=== PATIENT | male | born 1995 | race African-American/Black ===

== ENCOUNTER 2017-07-26 12:00 | Emergency (ER) | payer BC ==
[2017-07-26] MEDS ORDERED: Mag-Al 1200 mg/1200 mg/30 ML UDCUP ONE (12:29)
[2017-07-26] MEDS ORDERED: Lidocaine Viscous Sol 2% 15 ml UD Cup ONE (12:29)
--- NOTE | 2017-07-26 12:46 | RAD ---
2 VIEW CHEST: Date: 07/26/17 HISTORY: Chest pain. COMPARISON: 03/19/12. FINDINGS: The lungs are clear. Heart and mediastinum appear unremarkable. IMPRESSION: No evidence of acute process. POS: [facility]
[2017-07-26 13:01] LABS: #Basophils 0.1 thou/uL (0.0-0.2); #Eosinphils 0.1 thou/uL (0.0-0.7); #Lymphocytes 2.4 thou/uL (1.20-3.40); #Monocytes 0.5 thou/uL (0.11-0.59); #Neutrophils 6.3 thou/uL (1.40-6.50); %Basophils 0.6 % (0.0-1.0); %Eosinophils 0.8 % (0.0-10.0); %Lymphocytes 25.3 % (21.0-51.0); %Monocytes 5.5 % (0.0-10.0); Hematocrit 50.5 % (42.0-52.0); Mean Platelet Volume 6.2 fL (7.4-10.4); Red Blood Cell (RBC) Count 6.05 mill/uL (4.70-6.10); White Blood Cell (WBC) Count 9.3 thou/uL (4.8-10.8)
[2017-07-26 13:28] LABS: ALT (SGPT) 29 U/L (8-55); AST (SGOT) 18 U/L (5-34); Alkaline Phosphatase 92 U/L (40-150); Anion Gap 12 mmol/L (10-20); BUN (Urea Nitrogen) 10 mg/dL (8.9-20.6); Bilirubin, Total 0.4 mg/dL (0.2-1.2); Calc. Creatinine Clearance 0 mL/min (70-130); Calcium 9.1 mg/dL (7.8-10.44); Carbon Dioxide 22 mmol/L (22-29); Chloride 106 mmol/L (98-107); Estimated GFR-MDRD Greater than 90; Globulin 3.4 g/dL (2.4-3.5); Lipase 19 U/L (8-78)
[2017-07-26 13:30] LABS: Troponin I 0.013 ng/mL (< 0.028)
--- NOTE | 2017-07-26 15:49 | CT ---
EXAM: CHEST CT WITHOUT CONTRAST 07/26/17 HISTORY: Abnormal chest radiograph. Chest pain. COMPARISON: 03/19/12. TECHNIQUE: Noncontrast chest CT is performed in the axial plane. Coronal reformatted images are submitted for i nterpretation. FINDINGS: Limited evaluation of the mediastinum due to the absence of IV contrast. No mass, lymphadenopathy, h ematoma. Heart size is within normal limits. No significant pericardial fluid. Visualized upper megan d organs are also grossly unremarkable. Trachea and central bronchi are patent. No consolidation or mass. No pleural effusion. No pneumothor ax. No osteoblastic or osteolytic lesions. IMPRESSION: No acute cardiopulmonary process. POS: [facility]
== END 2017-07-26 15:54 | disposition home or self-care (01) ==
LOC: ERS 12:00
DX: K20.9 Esophagitis, unspecified (principal); E78.5 Hyperlipidemia, unspecified; I10 Essential (primary) hypertension
CPT/HCPCS: 36415; 71020; 71250; 80053; 83690; 84484; 85025; 85379; 93005

== ENCOUNTER 2019-01-07 10:54 | Inpatient (IN) | payer BC, SELFPAY ==
[2019-01-07] MEDS ORDERED: hydrALAZINE 20 MG/ML VIAL ONE (11:56)
[2019-01-07 12:09] LABS: #Basophils 0.1 thou/uL (0.0-0.2); #Lymphocytes 2.4 thou/uL (1.20-3.40); #Monocytes 0.5 thou/uL (0.11-0.59); #Neutrophils 4.5 thou/uL (1.40-6.50); %Basophils 1.1 % (0.0-1.0); %Eosinophils 0.7 % (0.0-10.0); %Lymphocytes 32.5 % (21.0-51.0); %Monocytes 6.1 % (0.0-10.0); %Neutrophils 59.7 % (42.0-75.0); Hemoglobin 15.8 g/dL (14.0-18.0); Mean Corpuscular HGB CONC 32.2 g/dL (32.0-36.0); Mean Corpuscular Hemoglobin 26.4 pg (27.0-31.0); Mean Corpuscular Volume 81.8 fL (78.0-98.0); Mean Platelet Volume 6.6 fL (7.4-10.4); Platelet Count 319 thou/uL (130-400); RBC Distribution Width 13.6 % (11.5-14.5); Red Blood Cell (RBC) Count 5.98 mill/uL (4.70-6.10); White Blood Cell (WBC) Count 7.5 thou/uL (4.8-10.8)
[2019-01-07 12:47] LABS: ALT (SGPT) 41 U/L (8-55); AST (SGOT) 20 U/L (5-34); Alkaline Phosphatase 83 U/L (40-150); Anion Gap 14 mmol/L (10-20); BUN (Urea Nitrogen) 11 mg/dL (8.9-20.6); Bilirubin, Total 0.5 mg/dL (0.2-1.2); Calc. Creatinine Clearance 0 mL/min (70-130); Calcium 9.6 mg/dL (7.8-10.44); Carbon Dioxide 25 mmol/L (22-29); Chloride 104 mmol/L (98-107); Estimated GFR-MDRD Greater than 90; Globulin 3.4 g/dL (2.4-3.5); Glucose 87 mg/dL (70-105); Potassium 4.1 mmol/L (3.5-5.1); Protein, Total 7.4 g/dL (6.0-8.3); Sodium 139 mmol/L (136-145)
--- NOTE | 2019-01-07 12:48 | CT ---
Exam: CT brain without contrast HISTORY: Headache COMPARISON: None TECHNIQUE: Multiple contiguous axial images were obtained and a CT of the brain without contrast. FINDINGS: The brain is normal in morphology and attenuation without focal lesions or confluent areas of infarction. There is no evidence of hydrocephalus, intracranial hemorrhage, or extra-axial fluid collection. The calvarium and overlying soft tissues are unremarkable. The visualized paranasal sinuses and masto id air cells are well aerated. IMPRESSION: No evidence of acute intracranial abnormality
[2019-01-07] MEDS ORDERED: Labetalol HCl 100 MG/20 ML VIAL ONE (14:07)
[2019-01-07] MEDS ORDERED: niCARdipine 20MG In NaCl 20 MG/200 ML BAG ONE ×2 (14:39→16:51)
--- NOTE | 2019-01-07 15:35 | HP ---
PRIMARY CARE PHYSICIAN: [facility] Call Admission. REASON FOR ADMISSION: Hypertensive urgency. HISTORY OF PRESENT ILLNESS: A 23-year-old male, who presented to emergency room with throbbing headache, which was started yesterday. He was feeling nauseated, but he denies any vomiting. He denies any focal motor or sensory symptoms. He denies any tingling numbness. He denies any chest pain, palpitation, shortness of breath. When he arrived to emergency room, his blood pressure was 244/157. He was given a dose of hydralazine and labetalol. Even after that, the patient was having very high blood pressure and that is why, Cardene drip was started for better blood pressure control and subsequently, we decided to keep this patient in ICU for monitoring blood pressure and titrating Cardene drip. This patient has underlying morbid obesity and he is experiencing daytime sleepiness. He also experiences snoring during nighttime, but he has never been diagnosed with sleep apnea. The patient also reports that he gained significant weight over last few months. He was told that he has hypertension diagnosis, but he was not taking any medication for last several months. REVIEW OF SYSTEMS: CONSTITUTIONAL: Negative for weight loss or gain, ability to conduct usual activities. SKIN: Negative for rash, itching. EYES: Negative for double vision, pain. ENT/MOUTH: Negative for nose bleeding, neck stiffness, pain, tenderness. CARDIOVASCULAR: Negative for palpitations, dyspnea on exertion, orthopnea. RESPIRATORY: Negative for shortness of breath, wheezing, cough, hemoptysis, fever or night sweats. GASTROINTESTINAL: Negative for poor appetite, abdominal pain, heartburn, nausea, vomiting, constipation, or diarrhea. GENITOURINARY: Negative for urgency, frequency, dysuria, nocturia. MUSCULOSKELETAL: Negative for pain, swelling. NEUROLOGIC/PSYCHIATRIC: Negative for anxiety, depression. ALLERGY/IMMUNOLOGIC: Negative for skin rash, bleeding tendency. Please see my HPI for pertinent positives and negatives. All other review of systems reviewed and negative except as mentioned in HPI. PAST MEDICAL HISTORY: Hypertension, noncompliance with the treatment, morbid obesity. PAST SURGICAL HISTORY: Reviewed and negative. PAST PSYCHIATRIC HISTORY: Reviewed and negative. SOCIAL HISTORY: The patient drinks alcohol every other week. He denies any smoking. He denies any other illicit drug abuse. He works in [employer]. FAMILY HISTORY: Positive for hypertension to grandmother, but no strong family history of premature coronary artery disease, stroke, or cancer. ALLERGIES: NO KNOWN DRUG ALLERGIES. CURRENT HOME MEDICATIONS: The patient is not taking any prescribed or non-prescribed medication. EMERGENCY ROOM COURSE: The patient was given hydralazine and labetalol and subsequently, Cardene drip was started. PHYSICAL EXAMINATION: VITAL SIGNS: Blood pressure maximum 244/157, pulse 95, respiratory rate 18, temperature 97.6, saturation 98% on room air. Weight 163 kg. GENERAL: The patient is currently alert, awake, in no obvious acute distress. HEENT: Head; normocephalic, atraumatic. Eyes; pupils round, reactive to light. Extraocular muscle intact. ENT; oropharynx within normal limits. Crowded oropharynx. Large circumference of neck. No pharyngeal erythema. No exudate. NECK: Circumference of neck is larger. No JVD. No thyromegaly. No carotid bruit. LUNGS: Clear to auscultation without any rhonchi or rales. CARDIAC: S1, S2 regular. No murmur. No gallop. No rub. ABDOMEN: Morbid obesity present. Obesity limiting examination. No organomegaly. No mass. No suprapubic tenderness. BACK EXAMINATION: Unremarkable. No CVA tenderness. EXTREMITIES: Upper extremity, passive movement of all joints are normal. Lower extremity, no edema. Good distal pulsation. SKIN: No skin rash. HEMATOLOGICAL SYSTEM: No lymphadenopathy. NEUROLOGIC: Nonfocal examination. The patient is alert oriented x3. Cranial nerves nerve 2 through 12 intact. Motor 5/5 in all four limbs. Sensation bilateral symmetrical. Reflexes symmetrical. Plantar bilateral flexor. SIGNIFICANT LABORATORY DATA: EKG showing nonspecific ST-T changes, LVH with repolarization changes. CBC; WBC 7.5, hemoglobin 15.8, platelet 319. BMP; sodium 139, potassium 4.1, chloride 104, carbon dioxide 25, BUN 11, creatinine 1.17, glucose 87, calcium 9.6. LFT; AST 20, ALT 41, alkaline phosphatase 83, and albumin 4.0. ASSESSMENT AND PLAN: 1. Hypertensive urgency/emergency. The patient has not responded to conservative parenteral medication in the emergency room and he is requiring Cardene drip for control of blood pressure. At this point because the patient is on Cardene drip, we will keep him in ICU for titrating Cardene drip. We will also start oral medication, Procardia XL and hydrochlorothiazide. We will try to wean off from Cardene drip. We will check secondary hypertension workup with aldosterone, plasma renin activity, echocardiography, TSH, lipid profile, hemoglobin A1c. 2. Morbid obesity with obstructive sleep apnea, suspected. The patient will need outpatient sleep study. Weight loss education given. Healthy lifestyle measure discussed with the patient. 3. Deep venous thrombosis prophylaxis. Lovenox 40 mg subcu daily prophylaxis. 4. Gastrointestinal prophylaxis. Pepcid 20 mg p.o. b.i.d. CODE STATUS: The patient is full code. The patient does not have any surrogate decision maker. DISPOSITION PLAN: Based on clinical course, we are expecting the patient's stay in hospital more than 2 midnights. Plan of care discussed with the patient in detail. Job ID: [id number]
[2019-01-07] MEDS ORDERED: Hydrocerin (Eucerin) Cream 120 gm Jar TOP PRN (17:56)
[2019-01-07] MEDS ORDERED: cloNIDine 0.1 MG TAB PO PRN (17:56)
[2019-01-07] MEDS ORDERED: Nitroglycerin 0.4 MG TAB (25 Tab Bottle) SL PRN (17:56)
[2019-01-07] MEDS ORDERED: Ondansetron ODT 4 MG TAB PO PRN (17:56)
[2019-01-07] MEDS ORDERED: Ondansetron PF 4 MG/2 ML Vial IVP PRN (17:56)
[2019-01-07] MEDS ORDERED: Loratadine 10 MG TAB PO PRN (17:56)
[2019-01-07] MEDS ORDERED: Labetalol HCl 100 MG/20 ML VIAL SLOW IVP PRN (17:56)
[2019-01-07] MEDS ORDERED: HYDROcodone/Acetaminophen 5/325 mg Tablet PO PRN (17:56)
[2019-01-07] MEDS ORDERED: Acetaminophen 325 MG TAB PO PRN (17:56)
[2019-01-07] MEDS ORDERED: hydrALAZINE 20 MG/ML VIAL SLOW IVP PRN (17:56)
[2019-01-07] MEDS ORDERED: Cepastat Lozenges 1 LOZ PO PRN (17:56)
[2019-01-07] MEDS ORDERED: Diabetic Tussin 200 MG/10 ML UDCUP PO PRN (17:56)
[2019-01-07] MEDS ORDERED: niCARdipine HCl 25 MG in Sodium Chloride 0.9% 250 ML 240 ML IVPB SCH (17:56)
[2019-01-07] MEDS ORDERED: Sodium Chloride 0.65% Nasal 44 ML BOT EA NARE PRN (17:56)
[2019-01-07] MEDS ORDERED: Senokot S 8.6-50 MG TAB PO PRN (17:56)
[2019-01-07] MEDS ORDERED: Artificial Tears 18 DROP/0.9 ML EA EYE PRN (17:56)
[2019-01-07] MEDS ORDERED: Bisacodyl 10 MG SUPP PR PRN (17:56)
[2019-01-07] MEDS ORDERED: Loperamide HCl 2 MG CAP PO PRN (17:56)
[2019-01-07] MEDS ORDERED: Zolpidem Tartrate 5 MG TAB PO PRN (17:56)
[2019-01-07 17:57] VITALS: BMI 57.2
[2019-01-07] MEDS: Famotidine 20 MG TAB PO SCH (20:53)
[2019-01-07 21:58] LABS: Amphetamine Not Detected (NotDetected); Barbiturates Screen Not Detected (NotDetected); Benzodiazepine Screen Not Detected (NotDetected); Cocaine Metabolite Screen Not Detected (NotDetected); Medtox Control Line Valid? VALID (VALID); Medtox Reader # READER 1; Methadone Not Detected (NotDetected); Methamphetamine Not Detected (NotDetected); Opiate Screen Not Detected (NotDetected); Oxycodone Screen Not Detected (NotDetected); Phencyclidine (PCP) Not Detected (NotDetected); THC/Cannabinoid Screen Not Detected (NotDetected); Tricyclic Screen Not Detected (NotDetected)
[2019-01-08 06:20] LABS: #Basophils 0.1 thou/uL (0.0-0.2); #Lymphocytes 2.5 thou/uL (1.20-3.40); #Monocytes 0.8 thou/uL (0.11-0.59); #Neutrophils 5.7 thou/uL (1.40-6.50); %Basophils 0.7 % (0.0-1.0); %Eosinophils 0.5 % (0.0-10.0); %Lymphocytes 27.8 % (21.0-51.0); %Monocytes 8.3 % (0.0-10.0); %Neutrophils 62.8 % (42.0-75.0); Hemoglobin 14.4 g/dL (14.0-18.0); Mean Corpuscular Hemoglobin 26.7 pg (27.0-31.0); Mean Corpuscular Volume 83.4 fL (78.0-98.0); Mean Platelet Volume 6.8 fL (7.4-10.4); Platelet Count 308 thou/uL (130-400); RBC Distribution Width 13.8 % (11.5-14.5); Red Blood Cell (RBC) Count 5.39 mill/uL (4.70-6.10)
[2019-01-08 06:42] LABS: Anion Gap 12 mmol/L (10-20); BUN (Urea Nitrogen) 17 mg/dL (8.9-20.6); Calc. Creatinine Clearance 189 mL/min (70-130); Calcium 9.1 mg/dL (7.8-10.44); Carbon Dioxide 24 mmol/L (22-29); Cardiac Risk 6.1 (Less than 4.5); Chloride 105 mmol/L (98-107); Cholesterol 207 mg/dl (< 200 Desired); Estimated GFR-MDRD 77; Glucose 93 mg/dL (70-105); HDL Cholesterol 34 mg/dL (>60 Neg Risk); LDL Cholesterol, Calculated 155 mg/dL; Potassium 3.8 mmol/L (3.5-5.1); Sodium 137 mmol/L (136-145); Triglycerides 88 mg/dL (Less than 150)
[2019-01-08] MEDS: NIFEdipine XL 60 MG TAB PO SCH (07:29)
[2019-01-08] MEDS: Hydrochlorothiazide 25 MG TAB PO SCH (07:29)
[2019-01-08] MEDS: Famotidine 20 MG TAB PO SCH ×2 (07:30→20:09)
[2019-01-08] MEDS: Enoxaparin Sodium 40 MG/0.4 ML SYRINGE SC SCH (10:42)
--- NOTE | 2019-01-08 12:29 | PDOC.PN ---
- Subjective Encounter Start Date: 01/08/19 Encounter Start Time: 07:00 Patient seen and examined. No new complaints. No overnight events - Objective Resuscitation Status - Order Detail: 01/07/19 15:05 Resuscitation Status Routine Resuscitation Status: FULL: Full Resuscitation MAR Reviewed: Yes Vital Signs & Weight: Vital Signs (12 hours) Temp Pulse Resp BP BP Pulse Ox 01/08/19 11:10 98.4 F 90 18 135/63 97 01/08/19 08:00 97.8 F 100 01/08/19 07:40 100 01/08/19 07:29 103 H 185/113 H 01/08/19 04:00 98.0 F Weight Weight 354 lb 15.108 oz Most Recent Monitor Data Heart Rate from ECG 85 NIBP 137/91 NIBP BP-Mean 106 Respiration from ECG 20 SpO2 100 I&O: 01/07/19 01/08/19 01/09/19 06:59 06:59 06:59 Intake Total 724 540 Output Total 400 450 Balance 324 90 Result Diagrams: 01/08/19 05:55 01/08/19 05:55 EKG Reviewed by me: Yes Phys Exam - Physical Examination Constitutional: NAD HEENT: PERRLA, moist MMs, sclera anicteric Neck: no JVD, supple Respiratory: no wheezing, no rales, no rhonchi Cardiovascular: RRR, no significant murmur, no rub Gastrointestinal: soft, non-tender, no distention, positive bowel sounds Musculoskeletal: no edema, pulses present Neurological: non-focal, normal sensation, moves all 4 limbs Psychiatric: normal affect, A&O x 3 Skin: no rash, normal turgor Dx/Plan (1) Dyslipidemia Code(s): E78.5 - HYPERLIPIDEMIA, UNSPECIFIED Status: Acute (2) Hypertensive urgency, malignant Code(s): I16.0 - HYPERTENSIVE URGENCY Status: Acute (3) Morbid obesity with BMI of 50.0-59.9, adult Code(s): E66.01 - MORBID (SEVERE) OBESITY DUE TO EXCESS CALORIES; Z68.43 - BODY MASS INDEX (BMI) 50-59.9, ADULT Status: Chronic (4) KASSANDRA (obstructive sleep apnea) Code(s): G47.33 - OBSTRUCTIVE SLEEP APNEA (ADULT) (PEDIATRIC) Status: Suspected - Plan cont current plan of care * medication reviewed as below * symptomatic treatment. * transfer to medical * add coreg 25 mg po bid * jaenl delgado Review of Systems - Review of Systems ENT: negative: Ear Pain, Ear Discharge, Nose Pain, Nose Discharge, Nose Congestion, Mouth Pain, Mouth Swelling, Throat Pain, Throat Swelling, Other Respiratory: negative: Cough, Dry, Shortness of Breath, Hemoptysis, SOB with Excertion, Pleuritic Pain, Sputum, Wheezing Cardiovascular: negative: chest pain, palpitations, orthopnea, paroxysmal nocturnal dyspnea, edema, light headedness, other Gastrointestinal: negative: Nausea, Vomiting, Abdominal Pain, Diarrhea, Constipation, Melena, Hematochezia, Other Genitourinary: negative: Dysuria, Frequency, Incontinence, Hematuria, Retention , Other Musculoskeletal: negative: Neck Pain, Shoulder Pain, Arm Pain, Back Pain, Hand Pain, Leg Pain, Foot Pain, Other - Medications/Allergies Allergies/Adverse Reactions: Allergies Allergy/AdvReac Type Severity Reaction Status Date / Time No Known Allergies Allergy Verified 07/20/13 10:09 Medications: Current Medications Acetaminophen (Tylenol) 650 mg PO Q4H PRN PRN Reason: Headache/Fever/Mild Pain (1-3) Hydrocodone Bitart/Acetaminophen ([place] 5/325) 1 tab PO Q4H PRN PRN Reason: Moderate Pain (4-6) Artificial Tears (Tears Naturale) 2 drop EA EYE PRN PRN PRN Reason: Dry Eyes Atorvastatin Calcium (Lipitor) 20 mg PO HS [facility] Bisacodyl (Dulcolax) 10 mg [place] DAILYPRN PRN PRN Reason: Constipation Carvedilol (Coreg) 25 mg PO BID-[facility] Clonidine (Catapres) 0.1 mg PO Q4H PRN PRN Reason: SBP Greater Than 170 Last Admin: 01/07/19 18:20 Dose: 0.1 mg Emollient Cream (Hydrocerin Cream) 0 gm TOP BIDPRN PRN PRN Reason: Dry Skin Enoxaparin Sodium (Lovenox) 40 mg SC 0900 [facility] Last Admin: 01/08/19 10:42 Dose: 40 mg Famotidine (Pepcid) 20 mg PO BID [facility] Last Admin: 01/08/19 07:30 Dose: 20 mg Guaifenesin (Robitussin Sf) 200 mg PO Q4H PRN PRN Reason: Cough Hydralazine HCl (Apresoline) 10 mg SLOW IVP Q4H PRN PRN Reason: SBP > 180 and HR < 70 Last Admin: 01/07/19 18:20 Dose: 10 mg Hydrochlorothiazide (Hydrochlorothiazide) 25 mg PO DAILY [facility] Last Admin: 01/08/19 07:29 Dose: 25 mg Labetalol HCl (Normodyne) 20 mg SLOW IVP Q4H PRN PRN Reason: SBP > 180 and HR >/= 70 Loperamide HCl (Imodium) 2 mg PO PRN PRN PRN Reason: Diarrhea/Loose Stools Loratadine (Claritin) 10 mg PO DAILYPRN PRN PRN Reason: Sinus Symptoms Nifedipine (Procardia Xl) 60 mg PO DAILY [facility] Last Admin: 01/08/19 07:29 Dose: 60 mg Nitroglycerin (Nitrostat) 0.4 mg SL Q5MIN PRN PRN Reason: Chest Pain Ondansetron HCl (Zofran Odt) 4 mg PO Q6H PRN PRN Reason: Nausea/Vomiting Ondansetron HCl (Zofran) 4 mg IVP Q6H PRN PRN Reason: Nausea/Vomiting Last Admin: 01/07/19 19:16 Dose: 4 mg Senna/Docusate Sodium (Senokot S) 2 tab PO BID PRN PRN Reason: Constipation Sodium Chloride ([place] 0.65%) 0 ml EA NARE QIDPRN PRN PRN Reason: Nasal Congestion Throat Lozenges (Cepastat Lozenges) 1 jaquan PO Q2H PRN PRN Reason: Sore Throat Zolpidem Tartrate (Ambien) 5 mg PO HSPRN PRN PRN Reason: Insomnia
--- NOTE | 2019-01-08 12:54 | CON ---
DATE OF CONSULTATION: HISTORY OF PRESENT ILLNESS: Miguel Lowe is a 23-year-old morbidly obese gentleman, 163 kilos, came to the ER with severe headache, uncontrolled blood pressure measured at 210/139, sats 98%, respiratory rate 17. He said he has gained 100 pounds in the last several years. Works in the oil field. No tobacco abuse. Minimal alcohol intake. It is unclear why he did not take his medicine. Denies difficulty breathing, previous history of pneumonia, TB, or asthma. PAST MEDICAL HISTORY: Mainly hypertension, hyperlipidemia. PREVIOUS SURGERIES: None. MEDICATIONS: Chronic medication are unknown. SOCIAL HISTORY: As noted. FAMILY HISTORY: Unremarkable. REVIEW OF SYSTEMS: Pertinent for sleep apnea. PHYSICAL EXAMINATION: VITAL SIGNS: This morning, blood pressure is 135/53, pulse 92, sats 100%, respiratory rate 18. GENERAL: Awake, alert, responsive. CHEST: Decreased breath sounds. No wheezing. CARDIAC: Normal S1, S2. No gallops. ABDOMEN: No masses. IMPRESSION: 1. Uncontrolled hypertension secondary to poor compliance of medication. 2. Sleep apnea. 3. Morbid obesity. PLAN: His blood pressure is improved on present medication. He transferred out of the ICU. Pulmonary Critical Care will follow at a distance. Please call if he needs an outpatient sleep study. Job ID: [id number]
[2019-01-08] MEDS: Carvedilol 25 MG TAB PO SCH (17:10)
[2019-01-08] MEDS ORDERED: Atorvastatin Calcium 20 MG TAB PO SCH (21:00)
[2019-01-09 08:23] VITALS: BP 138/85; TEMP 97.5
[2019-01-09] MEDS: Famotidine 20 MG TAB PO SCH (08:42)
[2019-01-09] MEDS: NIFEdipine XL 60 MG TAB PO SCH (08:42)
[2019-01-09] MEDS: Hydrochlorothiazide 25 MG TAB PO SCH (08:42)
[2019-01-09] MEDS: Carvedilol 25 MG TAB PO SCH (08:42)
[2019-01-09] MEDS: Enoxaparin Sodium 40 MG/0.4 ML SYRINGE SC SCH (08:43)
--- NOTE | 2019-01-09 09:56 | DIS ---
DATE OF ADMISSION: 01/07/2019 DATE OF DISCHARGE: 01/09/2019 PRIMARY CARE PHYSICIAN: [facility] Call Admission. DISCHARGE DISPOSITION: Home. PRIMARY DISCHARGE DIAGNOSES: 1. Hypertensive urgency. 2. Left ventricular hypertrophy secondary to hypertension, heart disease, dyslipidemia. SECONDARY DISCHARGE DIAGNOSES: 1. Morbid obesity with body mass index 55. 2. Obstructive sleep apnea, suspected. PRIMARY PROCEDURE/OPERATION: None. RADIOLOGICAL INVESTIGATION: CT brain, normal. Echocardiography showed normal EF. SIGNIFICANT LABORATORY DATA: Hemoglobin 14.4, creatinine 1.36, LDL 155, TSH 1.47. Hemoglobin A1c 5.0. Urine drug screen negative. DISCHARGE MEDICATION: 1. Lipitor 20 mg p.o. at bedtime. 2. Coreg 25 mg p.o. b.i.d. 3. Hydrochlorothiazide 25 mg p.o. daily. 4. Procardia XL 60 mg p.o. daily. CONTRAINDICATION: None. CODE STATUS: Full code. INPATIENT MUNICIPAL FIREFIGHTER: Pulmonary group also saw this patient because the patient was admitted in ICU. TEST RESULTS PENDING ON DISCHARGE: None. ALLERGIES: NO KNOWN DRUG ALLERGIES. DISCHARGE PLAN: Posthospital, the patient will follow up with primary care physician in 1 or 2 weeks. HOSPITAL COURSE: A 23-year-old male, who has morbid obesity as well as he has history suggestive of obstructive sleep apnea, who was complaining of headache and that is why he came to emergency room. His blood pressure was very high. It was very difficult to control even with parenteral hydralazine and labetalol Emergency Room, and that is why Cardene drip was started and he was admitted in ICU for titration of Cardene drip. We also started oral antihypertensives medication. During this admission, we started Coreg, hydrochlorothiazide, and Procardia XL, and with that, the patient's blood pressure was well controlled and Cardene drip was discontinued. The patient was transferred to medical floor. The patient is completely asymptomatic. His blood pressure continued to be better. We sent all new medication prescription to his pharmacy. I have seen and examined the patient at bedside today. I have given counseling to reduce weight and doing exercise as well as healthy lifestyle measure discussed with the patient. Dietary education given. He will follow up with primary care physician and he will get outpatient sleep study. Overall, the patient is medically stable for discharge today. Job ID: [id number]
--- NOTE | 2019-01-09 10:07 | PDOC.PN ---
- Subjective Encounter Start Date: 01/09/19 Encounter Start Time: 07:00 Patient seen and examined. No new complaints. No overnight events - Objective Resuscitation Status - Order Detail: 01/07/19 15:05 Resuscitation Status Routine Resuscitation Status: FULL: Full Resuscitation MAR Reviewed: Yes Vital Signs & Weight: Vital Signs (12 hours) Temp Pulse Resp BP BP Pulse Ox 01/09/19 08:42 83 01/09/19 08:15 97.5 F L 83 18 138/85 95 01/09/19 03:43 97.9 F 77 12 125/68 96 01/08/19 23:24 98.0 F 88 16 120/63 95 Weight Weight 354 lb 15.108 oz Most Recent Monitor Data Heart Rate from ECG 85 NIBP 137/91 NIBP BP-Mean 106 Respiration from ECG 20 SpO2 100 I&O: 01/08/19 01/09/19 01/10/19 06:59 06:59 06:59 Intake Total 724 540 Output Total 400 450 Balance 324 90 Result Diagrams: 01/08/19 05:55 01/08/19 05:55 Phys Exam - Physical Examination Constitutional: NAD HEENT: PERRLA, moist MMs, sclera anicteric Neck: no JVD, supple Respiratory: no wheezing, no rales, no rhonchi Cardiovascular: RRR, no significant murmur, no rub Gastrointestinal: soft, non-tender, no distention Musculoskeletal: no edema, pulses present Neurological: non-focal, normal sensation Lymphatic: no nodes Psychiatric: normal affect, A&O x 3 Skin: no rash, normal turgor Dx/Plan (1) Dyslipidemia Code(s): E78.5 - HYPERLIPIDEMIA, UNSPECIFIED Status: Acute (2) Hypertensive urgency, malignant Code(s): I16.0 - HYPERTENSIVE URGENCY Status: Acute (3) Morbid obesity with BMI of 50.0-59.9, adult Code(s): E66.01 - MORBID (SEVERE) OBESITY DUE TO EXCESS CALORIES; Z68.43 - BODY MASS INDEX (BMI) 50-59.9, ADULT Status: Chronic (4) KASSANDRA (obstructive sleep apnea) Code(s): G47.33 - OBSTRUCTIVE SLEEP APNEA (ADULT) (PEDIATRIC) Status: Suspected - Plan cont current plan of care * medication reviewed as below * symptomatic treatment * see discharge rosales. Review of Systems - Review of Systems ENT: negative: Ear Pain, Ear Discharge, Nose Pain, Nose Discharge, Nose Congestion, Mouth Pain, Mouth Swelling, Throat Pain, Throat Swelling, Other Respiratory: negative: Cough, Dry, Shortness of Breath, Hemoptysis, SOB with Excertion, Pleuritic Pain, Sputum, Wheezing Cardiovascular: negative: chest pain, palpitations, orthopnea, paroxysmal nocturnal dyspnea, edema, light headedness, other Gastrointestinal: negative: Nausea, Vomiting, Abdominal Pain, Diarrhea, Constipation, Melena, Hematochezia, Other Genitourinary: negative: Dysuria, Frequency, Incontinence, Hematuria, Retention , Other Musculoskeletal: negative: Neck Pain, Shoulder Pain, Arm Pain, Back Pain, Hand Pain, Leg Pain, Foot Pain, Other - Medications/Allergies Allergies/Adverse Reactions: Allergies Allergy/AdvReac Type Severity Reaction Status Date / Time No Known Allergies Allergy Verified 07/20/13 10:09 Medications: Current Medications Acetaminophen (Tylenol) 650 mg PO Q4H PRN PRN Reason: Headache/Fever/Mild Pain (1-3) Hydrocodone Bitart/Acetaminophen ([place] 5/325) 1 tab PO Q4H PRN PRN Reason: Moderate Pain (4-6) Artificial Tears (Tears Naturale) 2 drop EA EYE PRN PRN PRN Reason: Dry Eyes Atorvastatin Calcium (Lipitor) 20 mg PO [facility] Last Admin: 01/08/19 20:09 Dose: 20 mg Bisacodyl (Dulcolax) 10 mg [place] DAILYPRN PRN PRN Reason: Constipation Carvedilol (Coreg) 25 mg PO BID-[facility] Last Admin: 01/09/19 08:42 Dose: 25 mg Clonidine (Catapres) 0.1 mg PO Q4H PRN PRN Reason: SBP Greater Than 170 Last Admin: 01/07/19 18:20 Dose: 0.1 mg Emollient Cream (Hydrocerin Cream) 0 gm TOP BIDPRN PRN PRN Reason: Dry Skin Enoxaparin Sodium (Lovenox) 40 mg SC 0900 [facility] Last Admin: 01/09/19 08:43 Dose: 40 mg Famotidine (Pepcid) 20 mg PO BID [facility] Last Admin: 01/09/19 08:42 Dose: 20 mg Guaifenesin (Robitussin Sf) 200 mg PO Q4H PRN PRN Reason: Cough Hydralazine HCl (Apresoline) 10 mg SLOW IVP Q4H PRN PRN Reason: SBP > 180 and HR < 70 Last Admin: 01/07/19 18:20 Dose: 10 mg Hydrochlorothiazide (Hydrochlorothiazide) 25 mg PO DAILY [facility] Last Admin: 01/09/19 08:42 Dose: 25 mg Labetalol HCl (Normodyne) 20 mg SLOW IVP Q4H PRN PRN Reason: SBP > 180 and HR >/= 70 Loperamide HCl (Imodium) 2 mg PO PRN PRN PRN Reason: Diarrhea/Loose Stools Loratadine (Claritin) 10 mg PO DAILYPRN PRN PRN Reason: Sinus Symptoms Nifedipine (Procardia Xl) 60 mg PO DAILY [facility] Last Admin: 01/09/19 08:42 Dose: 60 mg Nitroglycerin (Nitrostat) 0.4 mg SL Q5MIN PRN PRN Reason: Chest Pain Ondansetron HCl (Zofran Odt) 4 mg PO Q6H PRN PRN Reason: Nausea/Vomiting Ondansetron HCl (Zofran) 4 mg IVP Q6H PRN PRN Reason: Nausea/Vomiting Last Admin: 01/07/19 19:16 Dose: 4 mg Senna/Docusate Sodium (Senokot S) 2 tab PO BID PRN PRN Reason: Constipation Sodium Chloride ([place] Nasal [place] 0.65%) 0 ml EA NARE QIDPRN PRN PRN Reason: Nasal Congestion Throat Lozenges (Cepastat Lozenges) 1 jaquan PO Q2H PRN PRN Reason: Sore Throat Zolpidem Tartrate (Ambien) 5 mg PO HSPRN PRN PRN Reason: Insomnia
== END 2019-01-09 14:27 | disposition home or self-care (01) | DRG 305 ==
LOC: ERS 10:54 → CCU 17:40 → ONC 01-08 11:33
PROVIDERS: ADMIT Internal Medicine; ATTEND Internal Medicine
DX: I16.0 Hypertensive urgency (principal); Z68.43 Body mass index [BMI] 50.0-59.9, adult; E66.01 Morbid (severe) obesity due to excess calories; I11.9 Hypertensive heart disease without heart failure; G47.33 Obstructive sleep apnea (adult) (pediatric); E78.5 Hyperlipidemia, unspecified; Z91.19 Patient's noncompliance with other medical treatment and regimen; Z82.49 Family history of ischemic heart disease and other diseases of the circulatory system
CPT/HCPCS: 36415; 70450; 80048; 80053; 80061; 80306; 82088; 83036; 84244; 84443; 84484; 85025; 93005; 93306; 96365; 96366; 96375; J0360; J1650; J2405; J7050

== ENCOUNTER 2021-06-13 14:29 | Inpatient (IN) | payer OTHER, BC ==
[2021-06-13] MEDS ORDERED: Boostrix 0.5 ML (Tdap) VIAL ONE (14:39)
[2021-06-13 15:06] LABS: #Basophils 0.1 thou/uL (0.0-0.2); #Eosinphils 0.1 thou/uL (0.0-0.7); #Monocytes 0.7 thou/uL (0.11-0.59); #Neutrophils 7.9 thou/uL (1.40-6.50); %Basophils 0.9 % (0.0-1.0); %Eosinophils 0.6 % (0.0-10.0); %Lymphocytes 36.2 % (21.0-51.0); %Monocytes 5.1 % (0.0-10.0); %Neutrophils 57.2 % (42.0-75.0); Hemoglobin 14.6 g/dL (14.0-18.0); Mean Corpuscular HGB CONC 32.3 g/dL (32.0-36.0); Mean Corpuscular Volume 83.6 fL (78.0-98.0); Mean Platelet Volume 6.7 fL (7.4-10.4); Platelet Count 317 thou/uL (130-400); RBC Distribution Width 13.4 % (11.5-14.5); Red Blood Cell (RBC) Count 5.41 mill/uL (4.70-6.10); White Blood Cell (WBC) Count 13.8 thou/uL (4.8-10.8)
[2021-06-13] MEDS ORDERED: Morphine 4 MG/ML VIAL ONE (15:32)
[2021-06-13] MEDS ORDERED: Ondansetron PF 4 MG/2 ML Vial ONE ×2 (15:32→18:49)
[2021-06-13 15:35] LABS: ALT (SGPT) 28 U/L (8-55); AST (SGOT) 19 U/L (5-34); Albumin 3.7 g/dL (3.5-5.0); Alkaline Phosphatase 73 U/L (40-110); Anion Gap 11 mmol/L (10-20); BUN (Urea Nitrogen) 10 mg/dL (8.9-20.6); Bilirubin, Total 0.4 mg/dL (0.2-1.2); Calc. Creatinine Clearance 0 mL/min (70-130); Calcium 8.9 mg/dL (7.8-10.44); Carbon Dioxide 25 mmol/L (22-29); Chloride 105 mmol/L (98-107); Globulin 2.9 g/dL (2.4-3.5); Glucose 107 mg/dL (70-105); Lipase 15 U/L (8-78); Protein, Total 6.6 g/dL (6.0-8.3); Sodium 137 mmol/L (136-145)
[2021-06-13 15:37] LABS: Acetaminophen Less than 6.0 mcg/mL (10.0-30.0); Alcohol Less than 10 mg/dL (Less than 10); Salicylate Less than 8.0 mg/dL (15.0-30.0)
[2021-06-13] MEDS ORDERED: Lidocaine 1% w/Epinephrine 1:100K 20 ML VIAL ONE (15:52)
[2021-06-13] MEDS ORDERED: Promethazine HCl 25 MG/ML VIAL IM PRN (16:12)
[2021-06-13] MEDS ORDERED: diphenhydrAMINE 50 MG/ML VIAL IM PRN (16:12)
[2021-06-13] MEDS ORDERED: Ondansetron PF 4 MG/2 ML Vial IVP PRN (16:12)
[2021-06-13] MEDS ORDERED: diphenhydrAMINE 50 MG/ML VIAL IVP PRN (16:12)
[2021-06-13] MEDS ORDERED: Naloxone HCl 0.4 mg/ml Vial IV PRN (16:12)
[2021-06-13] MEDS ORDERED: HYDROmorphone 10 mg/100 ml CADD IVPB PRN (16:12)
[2021-06-13] MEDS ORDERED: diphenhydrAMINE 25 MG CAP PO PRN (16:12)
[2021-06-13] MEDS ORDERED: Zolpidem Tartrate 5 MG TAB PO PRN (16:12)
[2021-06-13] MEDS ORDERED: Cyclobenzaprine 10 MG TAB PO PRN (16:13)
[2021-06-13] MEDS ORDERED: traMADol HCl 50 MG TAB PO PRN (16:13)
[2021-06-13] MEDS ORDERED: Communication Order-Pharmacy FS SCH (16:15)
[2021-06-13] MEDS ORDERED: hydrALAZINE 20 MG/ML VIAL SLOW IVP PRN (16:24)
[2021-06-13 17:03] LABS: Bilirubin Negative (Negative); Blood, Urine Negative (Negative); Clarity Clear (Clear); Glucose, Urine (Dipstick) Normal (Negative); Ketone, Urine Negative (Negative); Leukocyte Negative Leu/uL (Negative); Nitrite Negative (Negative); Protein, Urine (Dipstick) 10 mg/dL (Neg-Trace); Specific Gravity, Urine 1.022 (1.002-1.036); Urobilinogen Normal mg/dL (Less than 2); pH, Urine 6.5 (5.0-9.0)
[2021-06-13 17:11] LABS: Amphetamine Not Detected (NotDetected); Barbiturates Screen Not Detected (NotDetected); Benzodiazepine Screen Not Detected (NotDetected); Cocaine Metabolite Screen Not Detected (NotDetected); Methadone Not Detected (NotDetected); Methamphetamine Detected (NotDetected); Opiate Screen Detected (NotDetected); Oxycodone Screen Not Detected (NotDetected); Phencyclidine (PCP) Not Detected (NotDetected); THC/Cannabinoid Screen Not Detected (NotDetected); Tricyclic Screen Not Detected (NotDetected)
[2021-06-13] MEDS ORDERED: Ibuprofen 200 MG TAB PO PRN (17:20)
[2021-06-13] MEDS ORDERED: Fentanyl 100 MCG/2 ML VIAL ONE ×4 (17:43→22:04)
[2021-06-13] MEDS ORDERED: Midazolam HCl 2 mg/2 ml Vial ONE (17:43)
[2021-06-13] MEDS ORDERED: CEFAZOLIN 2 GM in Premix Bag 1 BAG IVPB SCH (18:00)
[2021-06-13 18:06] LABS: SARS-CoV-2 NAA Rapid Test Not Detected (NotDetected)
[2021-06-13] MEDS ORDERED: Lidocaine 1% PF 5 ML VIAL ONE (18:49)
[2021-06-13] MEDS ORDERED: Succinylcholine 200 MG/10 ml SYRINGE FS ONE (18:49)
[2021-06-13] MEDS ORDERED: Ketorolac Tromethamine 30 MG/ML VIAL ONE (18:49)
[2021-06-13] MEDS ORDERED: PROPOFOL 200 MG/20 ML VIAL ONE (18:49)
[2021-06-13] MEDS ORDERED: Glycopyrrolate 0.2 MG/ML 5 ML SYRINGE ONE (18:49)
[2021-06-13] MEDS ORDERED: Labetalol HCl 100 MG/20 ML VIAL ONE ×3 (18:49→23:21)
[2021-06-13] MEDS ORDERED: Dexamethasone 20 MG/5 ML VIAL ONE (18:49)
[2021-06-13] MEDS ORDERED: Rocuronium Bromide 10 MG/ML (10ML VIAL) ONE (18:49)
[2021-06-13] MEDS ORDERED: Ondansetron HCl/PF 4 MG/2 ML Vial IVP PRN (21:06)
[2021-06-13] MEDS ORDERED: HYDROmorphone 2 MG/ML VIAL SLOW IVP PRN (21:06)
[2021-06-13] MEDS ORDERED: Meperidine HCl/PF 25 MG/ML VIAL SLOW IVP PRN (21:06)
[2021-06-13] MEDS ORDERED: Promethazine HCl 25 MG/ML VIAL IVPB PRN (21:06)
[2021-06-13] MEDS ORDERED: hydrALAZINE 20 MG/ML VIAL ONE (21:53)
[2021-06-13 22:41] VITALS: BMI 62.1
[2021-06-13] MEDS: traMADol HCl 50 MG TAB PO SCH (22:52)
[2021-06-13] MEDS: Sodium Chloride 0.9% 1,000 ML IV SCH ×2 (22:52→23:52)
[2021-06-13] MEDS: Acetaminophen 325 MG TAB PO SCH (22:52)
[2021-06-13] MEDS: Atorvastatin Calcium 20 MG TAB PO SCH (22:53)
[2021-06-13] MEDS: Senokot S 8.6-50 MG TAB PO SCH (22:53)
[2021-06-13] MEDS: Gabapentin 300 MG CAP PO SCH (22:53)
[2021-06-13] MEDS: Labetalol HCl 100 MG/20 ML VIAL SLOW IVP PRN (23:51)
[2021-06-14] MEDS: traMADol HCl 50 MG TAB PO SCH ×5 (00:02→23:45)
[2021-06-14] MEDS: CEFAZOLIN 2 GM in Premix Bag 1 BAG IVPB SCH ×2 (02:05→10:00)
[2021-06-14] MEDS: Acetaminophen 325 MG TAB PO SCH ×2 (03:21→10:13)
[2021-06-14] MEDS: Labetalol HCl 100 MG/20 ML VIAL SLOW IVP PRN (03:22)
[2021-06-14] MEDS: Polyethylene Glycol 3350 17 GM Packet PO SCH (10:01)
[2021-06-14] MEDS: Hydrochlorothiazide 25 MG TAB PO SCH (10:03)
[2021-06-14] MEDS: Senokot S 8.6-50 MG TAB PO SCH ×2 (10:06→21:01)
[2021-06-14] MEDS: Gabapentin 300 MG CAP PO SCH ×3 (10:06→21:02)
[2021-06-14] MEDS: Multivitamin W/ Minerals 1 TAB PO SCH (10:06)
[2021-06-14] MEDS: Carvedilol 25 MG TAB PO SCH ×2 (10:07→16:21)
[2021-06-14] MEDS: NIFEdipine XL 60 MG TAB PO SCH (10:12)
[2021-06-14] MEDS: Acetaminophen 500 MG TAB PO SCH ×2 (16:22→21:02)
[2021-06-14] MEDS: Sodium Chloride 0.9% 1,000 ML IV SCH ×2 (17:12→19:18)
[2021-06-14] MEDS: Atorvastatin Calcium 20 MG TAB PO SCH (21:01)
[2021-06-15] MEDS: Sodium Chloride 0.9% 1,000 ML IV SCH (03:26)
[2021-06-15] MEDS: Acetaminophen 500 MG TAB PO SCH ×5 (03:26→21:03)
[2021-06-15] MEDS: traMADol HCl 50 MG TAB PO SCH ×3 (04:59→17:57)
[2021-06-15 05:50] LABS: #Lymphocytes 2.9 thou/uL (1.20-3.40); #Monocytes 0.8 thou/uL (0.11-0.59); #Neutrophils 6.8 thou/uL (1.40-6.50); %Basophils 0.2 % (0.0-1.0); %Eosinophils 0.4 % (0.0-10.0); %Lymphocytes 27.4 % (21.0-51.0); %Monocytes 7.4 % (0.0-10.0); %Neutrophils 64.6 % (42.0-75.0); Hemoglobin 11.7 g/dL (14.0-18.0); Mean Corpuscular HGB CONC 32.4 g/dL (32.0-36.0); Mean Corpuscular Hemoglobin 27.4 pg (27.0-31.0); Mean Corpuscular Volume 84.5 fL (78.0-98.0); Mean Platelet Volume 6.8 fL (7.4-10.4); Platelet Count 286 thou/uL (130-400); RBC Distribution Width 13.6 % (11.5-14.5); Red Blood Cell (RBC) Count 4.25 mill/uL (4.70-6.10); White Blood Cell (WBC) Count 10.6 thou/uL (4.8-10.8)
[2021-06-15] MEDS: Polyethylene Glycol 3350 17 GM Packet PO SCH (10:01)
[2021-06-15] MEDS: Gabapentin 300 MG CAP PO SCH ×3 (10:02→21:03)
[2021-06-15] MEDS: Multivitamin W/ Minerals 1 TAB PO SCH (10:02)
[2021-06-15] MEDS: Senokot S 8.6-50 MG TAB PO SCH ×2 (10:03→21:04)
[2021-06-15] MEDS: Hydrochlorothiazide 25 MG TAB PO SCH (10:03)
[2021-06-15] MEDS: Carvedilol 25 MG TAB PO SCH ×2 (10:03→17:19)
[2021-06-15] MEDS: NIFEdipine XL 60 MG TAB PO SCH (10:04)
[2021-06-15] MEDS ORDERED: Enoxaparin Sodium 40 MG/0.4 ML SYRINGE SC SCH (21:00)
[2021-06-15] MEDS: Atorvastatin Calcium 20 MG TAB PO SCH (21:03)
[2021-06-16 06:06] VITALS: BP 125/57; TEMP 96.3
== END 2021-06-15 21:25 | DRG 481 ==
LOC: ERS 14:29 → SURG A 16:17
PROVIDERS: ADMIT Surgery; ATTEND Surgery
PROC: 0QH836Z Insertion of Intramedullary Internal Fixation Device into Right Femoral Shaft, Percutaneous Approach (ICD-10-PCS; principal; 2021-06-13)
PROC: 0HQ0XZZ Repair Scalp Skin, External Approach (ICD-10-PCS; 2021-06-13)
DX: S72.351A Displaced comminuted fracture of shaft of right femur, initial encounter for closed fracture (principal); Z68.44 Body mass index [BMI] 60.0-69.9, adult; E78.5 Hyperlipidemia, unspecified; Z20.822 Contact with and (suspected) exposure to COVID-19; I10 Essential (primary) hypertension; S01.01XA Laceration without foreign body of scalp, initial encounter; E66.9 Obesity, unspecified; I16.0 Hypertensive urgency; V89.2XXA Person injured in unspecified motor-vehicle accident, traffic, initial encounter
CPT/HCPCS: 12013; 36415; 70450; 71045; 72125; 72170; 76000; 80053; 80306; 80307; 81003; 83690; 84484; 85025; 90471; 90715; 93005; 96374; 96375; C1713; G0390; J0360; J0690; J1100; J1650; J1885; J2250; J2270; J2405; J2704; J3010; J7050; U0002